=== PATIENT | female | born 1970 | race Caucasian/White ===

== ENCOUNTER 2017-03-13 12:35 | Emergency (ER) | payer OTHER ==
[~2017-03-13] VITALS: Ht 162.6 cm; Wt 52.2 kg
[2017-03-13] MEDS ORDERED: DEXAMETHASONE SOD PHOSPHATE 4 MG INJ IM ONE (13:00)
[2017-03-13] MEDS ORDERED: HYDROMORPHONE 1 MG/1 ML DISP.SYRIN IM ONE (13:00)
[2017-03-13] MEDS ORDERED: PROMETHAZINE HCL 25 MG/1 ML VIAL IM ONE (13:00)
[2017-03-13] MEDS ORDERED: PHENYTOIN SODIUM 100 MG/2 ML VIAL IV ONE (13:09)
[2017-03-13] MEDS ORDERED: DEXAMETHASONE SOD PHOSPHATE 10 MG INJ ONE (13:09)
[2017-03-13] MEDS ORDERED: PROMETHAZINE HCL 25 MG/1 ML VIAL ONE (13:10)
[2017-03-13] MEDS ORDERED: HYDROMORPHONE 2 MG/1 ML DISP.SYRIN ONE (13:11)
--- NOTE | 2017-03-13 13:15 | NUR ---
mse completed, pt rec'd medications , then d/c'd home, pt ambulated w/o diff with mom present whom is to drive.
[2017-03-13 13:16] VITALS: BP 110/68
== END 2017-03-13 13:17 | disposition home or self-care (01) ==
LOC: ER 12:35
DX: G43.909 Migraine, unspecified, not intractable, without status migrainosus (principal); F17.200 Nicotine dependence, unspecified, uncomplicated; Z88.0 Allergy status to penicillin; Z88.8 Allergy status to other drugs, medicaments and biological substances
CPT/HCPCS: 96372 ×3; 99284; A4663; J1100; J1170; J2550; J1165

== ENCOUNTER 2017-05-22 18:27 | Emergency (ER) | payer OTHER ==
[~2017-05-22] VITALS: Ht 162.6 cm; Wt 56.7 kg
[2017-05-22] MEDS ORDERED: ALPR0.25 PO (18:48)
[2017-05-22] MEDS ORDERED: GABA-532 PO (18:48)
[2017-05-22] MEDS ORDERED: DOXE10CA2 PO (18:48)
[2017-05-22] MEDS ORDERED: AMIT10TA6 PO (18:48)
[2017-05-22] MEDS ORDERED: PRED20TA PO (18:48)
[2017-05-22] MEDS: IV NORMAL SALINE 1000 ML BAG IV ONE (22:03)
[2017-05-22] MEDS ORDERED: ONDANSETRON 4 MG/2 ML VIAL ONE ×2 (22:19→22:56)
[2017-05-22] MEDS ORDERED: diphenhydrAMINE 50 MG/1 ML VIAL ONE (22:19)
[2017-05-22] MEDS ORDERED: METOCLOPRAMIDE HCL 10 MG/2 ML VIAL ONE (22:19)
[2017-05-22] MEDS: METOCLOPRAMIDE HCL 10 MG/2 ML VIAL IV ONE (22:21)
[2017-05-22] MEDS: ONDANSETRON IV *ER 4 MG/2 ML VIAL IV ONE ×2 (22:22→22:49)
[2017-05-22] MEDS: diphenhydrAMINE 50 MG/1 ML VIAL IV ONE (22:22)
[2017-05-22] MEDS: HYDROMORPHONE 1 MG/1 ML DISP.SYRIN IV ONE (22:49)
[2017-05-22] MEDS ORDERED: HYDROMORPHONE 1 MG/1 ML DISP.SYRIN ONE (22:56)
--- NOTE | 2017-05-22 23:51 | NUR ---
Patient discharged to home in stable conditon. Written and verbal after care instructions given. Patient verbalizes understanding of instructions.
== END 2017-05-22 23:52 | disposition home or self-care (01) ==
LOC: ER 18:30
DX: G43.909 Migraine, unspecified, not intractable, without status migrainosus (principal); F17.200 Nicotine dependence, unspecified, uncomplicated; Z88.0 Allergy status to penicillin; Z88.8 Allergy status to other drugs, medicaments and biological substances
CPT/HCPCS: A4663; J1170; J1200; J2405; J2765; J7030

== ENCOUNTER 2017-07-29 17:45 | Emergency (ER) | payer OTHER ==
[~2017-07-29] VITALS: Ht 162.6 cm; Wt 59.0 kg
[~2017-07-29 17:45] MED LIST: ALPR0.25 PO; AMIT10TA6 PO; DOXE10CA2 PO; GABA-532 PO; PRED20TA PO
[2017-07-29] MEDS ORDERED: DEXAMETHASONE SOD PHOSPHATE 4 MG INJ IM ONE (18:30)
[2017-07-29] MEDS ORDERED: ONDANSETRON ODT 4 MG TAB.RAPDIS SL ONE (18:30)
[2017-07-29] MEDS ORDERED: HYDROMORPHONE 1 MG/1 ML DISP.SYRIN IM ONE (18:30)
[2017-07-29] MEDS ORDERED: PROMETHAZINE HCL 25 MG/1 ML VIAL IM ONE (18:30)
[2017-07-29] MEDS ORDERED: ONDANSETRON ODT 4 MG TAB.RAPDIS ONE (18:43)
[2017-07-29] MEDS ORDERED: PROMETHAZINE HCL 25 MG/1 ML VIAL ONE (18:44)
[2017-07-29] MEDS ORDERED: DEXAMETHASONE SOD PHOSPHATE 10 MG INJ ONE (18:44)
[2017-07-29] MEDS ORDERED: HYDROMORPHONE 2 MG/1 ML DISP.SYRIN ONE ×2 (18:44→18:51)
[2017-07-29] MEDS ORDERED: AMIT10TA6 PO (18:49)
[2017-07-29] MEDS ORDERED: [UNRECOGNIZED DRUG - CODE] TD (18:49)
[2017-07-29] MEDS ORDERED: DOXE10CA2 PO (18:49)
[2017-07-29] MEDS ORDERED: PROG100C15 PO (18:49)
[2017-07-29] MEDS ORDERED: PRED20TA PO (18:49)
--- NOTE | 2017-07-29 19:42 | NUR ---
Patient discharged to home in stable conditon. Written and verbal after care instructions given. Patient verbalizes understanding of instructions. Left facility at 1942 accompanied by family member to drive .
[2017-07-29 19:45] VITALS: BP 110/70
== END 2017-07-29 19:42 | disposition home or self-care (01) ==
LOC: ER 17:47
DX: G43.909 Migraine, unspecified, not intractable, without status migrainosus (principal); F17.200 Nicotine dependence, unspecified, uncomplicated; Z88.0 Allergy status to penicillin
CPT/HCPCS: A4663; J1100; J1170; J2550; Q0162

== ENCOUNTER 2018-02-21 14:36 | Emergency (ER) | payer OTHER ==
[~2018-02-21] VITALS: Ht 162.6 cm; Wt 49.9 kg
[~2018-02-21 14:36] MED LIST changes: -ALPR0.25 PO; -GABA-532 PO; +PROG100C15 PO; +[UNRECOGNIZED DRUG - CODE] TD
[2018-02-21] MEDS ORDERED: HYDROCODONE/ACETAMINOPHEN 5-32 (14:45)
[2018-02-21] MEDS ORDERED: CARISOPRODOL 350MG TABLETS (14:45)
[2018-02-21] MEDS ORDERED: ALPRAZOLAM 0.25 MG TABLET (14:45)
--- NOTE | 2018-02-21 14:45 | NUR ---
Extra blankets provided per patient's request. Comfort and safety measures maintained, pending MD evaluation.
--- NOTE | 2018-02-21 15:06 | NUR ---
Radiology department was called for this patient's need for x-ray. Patient is resting on gurney while using her personal electronic device, [employer].
--- NOTE | 2018-02-21 15:14 | NUR ---
Patient ambulated from the room 2A to bathroom with steady gait, NAD
--- NOTE | 2018-02-21 15:55 | NUR ---
DC, RX (INCLUDING PRECAUTIONS) AND FOLLOW UP INSTRUCTIONS GIVEN AND EXPLAINED TO PATIENT WHO STATES SHE UNDERSTANDS ALL INSTRUCTIONS.
== END 2018-02-21 15:56 | disposition home or self-care (01) ==
LOC: ER 14:36
DX: S93.402A Sprain of unspecified ligament of left ankle, initial encounter (principal); F17.210 Nicotine dependence, cigarettes, uncomplicated; Z88.0 Allergy status to penicillin; Z88.8 Allergy status to other drugs, medicaments and biological substances; Z79.899 Other long term (current) drug therapy; W19.XXXA Unspecified fall, initial encounter; Y93.89 Activity, other specified; Y92.89 Other specified places as the place of occurrence of the external cause; Y99.8 Other external cause status
CPT/HCPCS: 73610; A4663